=== PATIENT | female | born 1980 | race Caucasian/White ===

== ENCOUNTER 2024-10-22 12:30 | Outpatient (CLI) | payer OTHER, SELFPAY | END 2024-10-22 12:31 | disposition home or self-care (01) | LOC: NFLDREF 10-24 10:57 | PROVIDERS: PCP Emergency Medicine; Referring Provider Emergency Medicine; Visit Provider Family Medicine | DX: R73.03 Prediabetes (principal); I10 Essential (primary) hypertension; J45.40 Moderate persistent asthma, uncomplicated; Z77.120 Contact with and (suspected) exposure to mold (toxic) | CPT/HCPCS: 80053; 80061 ==

== ENCOUNTER 2025-03-25 16:25 | Outpatient (CLI) | payer OTHER, SELFPAY | END 2025-03-25 16:26 | disposition home or self-care (01) | LOC: NFLDREF 04-01 11:36 | PROVIDERS: PCP Family Medicine; Referring Provider Family Medicine; Visit Provider Nurse Practitioner Family | DX: R30.0 Dysuria (principal) | CPT/HCPCS: 87086 ==